=== PATIENT | female | born 1965 | race African-American/Black ===

== ENCOUNTER 2024-03-14 15:44 | Emergency (ER) | payer OTHER, MEDICAID ==
[~2024-03-14] VITALS: Ht 165.1 cm; Wt 72.0 kg
[2024-03-14 15:46] VITALS: O2SAT 97
[2024-03-14 16:09] LABS: BASOPHILS % 0.4 % (0.0-2.0); EOSINOPHILS % 0.5 % (0.0-5.0); HEMOGLOBIN. 12.8 g/dL (12.0-16.0); LYMPHOCYTES % 46.7 % (20.0-50.0); MEAN CORPUSCULAR HEMOGLOBIN 27.7 pg (28.0-32.0); MEAN CORPUSCULAR HGB CONC 32.8 g/dL (31.0-37.0); MEAN CORPUSCULAR VOLUME 84.3 fL (81.0-99.0); MONOCYTES % 6.7 % (2.0-8.0); NEUTROPHILS % 45.7 % (40.0-76.0); PLATELET 252 x1000/uL (130-400); RED BLOOD CELL COUNT 4.62 mill/uL (4.2-5.4); RED CELL DISTRIBUTION WIDTH 14.3 % (11.6-14.6); WHITE BLOOD COUNT 8.5 x1000/uL (4.5-11.0)
[2024-03-14 16:15] LABS: CHLORIDE 103 mEq/L (98-107); POTASSIUM 3.7 mEq/L (3.5-5.1); SODIUM 139 mEq/L (136-145)
[2024-03-14 16:16] LABS: CALCIUM 8.9 mg/dL (8.7-10.4); CARBON DIOXIDE 28 mEq/L (21-32)
[2024-03-14] MEDS: SODIUM CHLORIDE 0.9% 1,000 ML IV ONE (16:16)
[2024-03-14 16:21] LABS: GLUCOSE 107 mg/dL (70-105)
[2024-03-14 16:22] LABS: AMMONIA < 17 uMol/L (<32); UREA NITROGEN BLOOD 11 mg/dL (9-23)
[2024-03-14 16:23] LABS: ACETAMINOPHEN < 2 ug/mL (10-30); ALANINE AMINOTRANSFERASE 8 IU/L (10-49); ALBUMIN 3.9 g/dL (3.2-4.8); ASPARTATE AMINOTRANSFERASE 12 IU/L (<34); CREATINE KINASE 46 IU/L (34-145)
[2024-03-14 16:24] LABS: BILIRUBIN TOTAL 0.3 mg/dL (0.1-1.0); PROTEIN TOTAL 6.7 g/dL (6.0-8.3)
[2024-03-14 16:25] LABS: ETHANOL BLOOD < 10 mg/dL (<10); TROPONIN I HIGH SENSITIVITY < 4 ng/L (3.0-34)
[2024-03-14 18:37] LABS: TROPONIN I HIGH SENSITIVITY < 4 ng/L (3.0-34)
[2024-03-14] MEDS ORDERED: IPRATROPIUM/ALBUTEROL 0.5-3(2.5)MG/3ML NEB HHN PRN (20:00)
[2024-03-14] MEDS ORDERED: MAGNESIUM/ALUMINUM HYDROXIDE/SIMETHICONE 30ML UDC PO PRN (20:00)
[2024-03-14] MEDS: CLOPIDOGREL 75MG TABLET PO SCH (20:00)
[2024-03-14] MEDS ORDERED: DOCUSATE SODIUM 100MG CAPSULE PO PRN (20:00)
[2024-03-14] MEDS ORDERED: ATORVASTATIN CALCIUM 40MG TABLET PO SCH (21:00)
[2024-03-14] MEDS ORDERED: LORAZEPAM 2MG/ML INJ IV PRN (21:15)
[2024-03-14 21:50] LABS: CREATINE KINASE 49 IU/L (34-145)
[2024-03-14 22:50] VITALS: BP 127/57; PULSE 75; RESP 10
[2024-03-15] MEDS ORDERED: ENOXAPARIN 40MG/0.4ML SYR SUBCUT SCH (09:00)
== END 2024-03-14 22:59 | disposition short-term general hospital (02) ==
LOC: ER 15:44 → EDBEDREQ 18:40 → ER 22:59 → CANBEDREQ 03-15 12:16
DX: R55 Syncope and collapse (principal); R11.10 Vomiting, unspecified; J45.909 Unspecified asthma, uncomplicated; I10 Essential (primary) hypertension; R56.9 Unspecified convulsions; Z86.73 Personal history of transient ischemic attack (TIA), and cerebral infarction without residual deficits; Z88.0 Allergy status to penicillin
CPT/HCPCS: 80053; 80307; 80329; 80320; 82140; 82550; 82962; 83605; 83690; 83735; 84100; 85025; 84484; 36415; 71045; 70450; 93005; 96360; 96361; 99285; J7030; Z7610 ×3; G0480